=== PATIENT | female | born 1990 | race Caucasian/White ===

== ENCOUNTER 2021-11-25 20:11 | Emergency (ER) | payer OTHER ==
[2021-11-25 20:27] VITALS: BP 99/69; PULSE 86; TEMP 97.7; BMI 29.0
[2021-11-25] MEDS ORDERED: IBUPROFEN 600 MG TABLET (FP) PO ONE ×2 (22:31→22:39)
== END 2021-11-25 23:00 | disposition home or self-care (01) ==
LOC: JER 20:11
DX: M94.0 Chondrocostal junction syndrome [Tietze] (principal)
CPT/HCPCS: 71046-TC-FY; 93005; 93010; 99284-25